=== PATIENT | male | born 1945 | race Caucasian/White ===

== ENCOUNTER 2024-08-14 14:29 | Inpatient (IN) | payer MEDICARE ==
[~2024-08-14] VITALS: Ht 188 cm; Wt 128.4 kg
[2024-08-15 20:05] VITALS: BP 133/66; PULSE 79; RESP 20; TEMP 98.5; O2SAT 94
[2024-08-15] MEDS ORDERED: CALCIUM CARBONATE 500 MG CHEWABLE TABLET CHEW PRN (21:00)
[2024-08-15] MEDS ORDERED: BISACODYL 10 MG RECTAL RECTAL SUPPOSITORY PR PRN (21:00)
[2024-08-15] MEDS ORDERED: LACTULOSE 20 GM/30 ML SOLUTION UDCUP PO PRN (21:15)
[2024-08-15 22:00] VITALS: O2SAT 94
[2024-08-15] MEDS: DOCUSATE SODIUM 100 MG CAPSULE PO SCH (22:27)
[2024-08-15] MEDS: TAMSULOSIN HCL 0.4 MG CAPSULE PO SCH (22:27)
[2024-08-15] MEDS: ETHYL ALCOHOL 62% ANTISEPTIC NASAL SANITIZER 0.6 ML AMPUL NASAL SCH (22:27)
[2024-08-15] MEDS: SENNOSIDES 8.6 MG TABLET PO SCH (22:27)
[2024-08-15] MEDS: BUDESONIDE/FORMOTEROL FUMARATE 160-4.5 MCG/PUFF 10.2 GM INHALER IH SCH (22:28)
[2024-08-15] MEDS: VENLAFAXINE HCL 150 MG ER CAPSULE PO SCH (22:30)
[2024-08-15] MEDS: ROSUVASTATIN CALCIUM 10 MG TABLET PO SCH (22:30)
[2024-08-15] MEDS: DOXEPIN HCL 10 MG CAPSULE PO SCH (22:30)
[2024-08-15] MEDS: OxyCODONE HCL 10 MG IR TABLET PO PRN (22:38)
[2024-08-15] MEDS: ACETAMINOPHEN 500 MG TABLET PO SCH (22:40)
[2024-08-16 08:00] VITALS: BP 139/70; PULSE 60; RESP 19; TEMP 98.2; O2SAT 95
[2024-08-16] MEDS: LOSARTAN POTASSIUM 50 MG TABLET PO SCH (08:38)
[2024-08-16] MEDS: FUROSEMIDE 40 MG TABLET PO SCH (08:38)
[2024-08-16] MEDS: OMEPRAZOLE 20 MG CAPSULE PO SCH (08:38)
[2024-08-16] MEDS: FINASTERIDE 5 MG TABLET PO SCH (08:38)
[2024-08-16] MEDS: MONTELUKAST SODIUM 10 MG TABLET PO SCH (08:38)
[2024-08-16] MEDS: METOPROLOL SUCCINATE 25 MG ER TABLET PO SCH (08:38)
[2024-08-16] MEDS: POLYETHYLENE GLYCOL 3350 17 GM PACKET PO SCH (08:39)
[2024-08-16 10:04] LABS: BASOPHILS % (AUTO) 0.4 % (0.0-2.0); EOSINOPHILS % (AUTO) 3.1 % (1.0-6.0); HEMATOCRIT 31.8 % (41-53); HEMOGLOBIN 10.3 g/dL (13.5-17.5); LYMPHOCYTES # (AUTO) 0.9 K/uL (1.0-4.8); LYMPHOCYTES % (AUTO) 10.6 % (22.0-44.0); MEAN CORPUSCULAR HEMOGLOBIN 28.9 pg (26.0-34.0); MEAN CORPUSCULAR HGB CONC 32.4 G/dL (31.0-37.0); MEAN CORPUSCULAR VOLUME 89 fL (80-100); MONOCYTES # (AUTO) 0.5 K/uL (0.1-1.0); MONOCYTES % (AUTO) 6.6 % (2.0-9.0); NEUTROPHILS # (AUTO) 6.5 K/uL (1.8-7.7); NEUTROPHILS % (AUTO) 79.3 % (40.0-70.0); PLATELET COUNT (AUTO) 182 K/uL (150-450); RED BLOOD CELL COUNT(AUTO) 3.57 MIL/uL (4.50-5.90); WHITE BLOOD COUNT (AUTO) 8.2 K/uL (4.5-11.0)
[2024-08-16 10:23] LABS: ALANINE AMINOTRANSFERASE 38 U/L (12-78); ALBUMIN 2.1 g/dL (3.4-5.0); ALKALINE PHOSPHATASE 92 U/L (46-116); ANION GAP 10 mmol/L (8-16); ASPARTATE AMINOTRANSFERASE 38 U/L (15-37); BILIRUBIN,TOTAL 1.3 mg/dL (0.1-1.0); CALCIUM, TOTAL 8.1 mg/dL (8.8-10.5); CARBON DIOXIDE 24 mmol/L (22-29); CHLORIDE 105 mmol/L (98-107); CREATININE 0.85 mg/dL (0.60-1.30); GLOMERULAR FILTR. RATE CALC > 60 mL/min (>60); GLUCOSE,RANDOM 164 mg/dL (70-110); POTASSIUM 3.8 mmol/L (3.5-5.1); SODIUM SERUM 139 mmol/L (136-145); TOTAL PROTEIN, SERUM 5.6 g/dL (6.4-8.2); UREA NITROGEN, BLOOD 19 mg/dL (7-18)
[2024-08-16] MEDS: OxyCODONE HCL 5 MG IR TABLET PO PRN (13:11)
[2024-08-16 14:40] LABS: APPEARANCE,URINE CLEAR (CLEAR); BILIRUBIN,URINE NEGATIVE (NEGATIVE); COLOR,URINE YELLOW (YELLOW); GLUCOSE, URINE (UA) NEGATIVE (NEGATIVE); KETONES,URINE NEGATIVE (NEGATIVE); LEUKOCYTE ESTERASE ,URINE NEGATIVE (NEGATIVE); NITRATE,URINE NEGATIVE (NEGATIVE); OCCULT BLOOD,URINE NEGATIVE (NEGATIVE); PROTEIN,URINE TRACE mg/dL (NEGATIVE); SPECIFIC GRAVITIY, URINE 1.024 (1.003-1.030)
[2024-08-16 19:40] VITALS: BP 127/57; PULSE 70; RESP 18; TEMP 98.3; O2SAT 93
[2024-08-16] MEDS: ENOXAPARIN SODIUM 80 MG/0.8 ML PF SYRINGE SQ SCH (19:50)
[2024-08-16 20:40] VITALS: O2SAT 93
[2024-08-16 20:41] VITALS: O2SAT 94
[2024-08-17 08:30] VITALS: BP 135/71; PULSE 83; RESP 18; TEMP 98.1; O2SAT 95
[2024-08-17 11:05] VITALS: O2SAT 95
[2024-08-17 20:00] VITALS: BP 103/56; PULSE 90; RESP 19; TEMP 97.3; O2SAT 95
[2024-08-17] MEDS: MELATONIN 5 MG TABLET PO PRN (20:19)
[2024-08-17 21:00] VITALS: O2SAT 95
[2024-08-17 21:12] VITALS: BP 112/68; RESP 18; O2SAT 95
[2024-08-18 08:15] VITALS: BP 111/58; PULSE 72; RESP 19; TEMP 97.8; O2SAT 96
[2024-08-18 09:01] VITALS: BP 132/57; PULSE 72; RESP 19; O2SAT 95
[2024-08-18 20:00] VITALS: BP 105/53; PULSE 74; RESP 20; TEMP 98.5; O2SAT 95
[2024-08-18 21:00] VITALS: O2SAT 95
[2024-08-19 08:00] VITALS: BP 127/59; PULSE 71; RESP 18; TEMP 97.6; O2SAT 95
[2024-08-19 09:36] LABS: BASOPHILS % (AUTO) 0.7 % (0.0-2.0); EOSINOPHILS % (AUTO) 3.8 % (1.0-6.0); HEMATOCRIT 34.3 % (41-53); HEMOGLOBIN 11.1 g/dL (13.5-17.5); LYMPHOCYTES # (AUTO) 1.1 K/uL (1.0-4.8); LYMPHOCYTES % (AUTO) 14.8 % (22.0-44.0); MEAN CORPUSCULAR HEMOGLOBIN 28.8 pg (26.0-34.0); MEAN CORPUSCULAR HGB CONC 32.3 G/dL (31.0-37.0); MEAN CORPUSCULAR VOLUME 89 fL (80-100); MONOCYTES # (AUTO) 0.6 K/uL (0.1-1.0); MONOCYTES % (AUTO) 7.7 % (2.0-9.0); NEUTROPHILS # (AUTO) 5.5 K/uL (1.8-7.7); PLATELET COUNT (AUTO) 277 K/uL (150-450); RED BLOOD CELL COUNT(AUTO) 3.84 MIL/uL (4.50-5.90); WHITE BLOOD COUNT (AUTO) 7.5 K/uL (4.5-11.0)
[2024-08-19 19:59] VITALS: BP 115/54; PULSE 71; RESP 18; TEMP 97.8; O2SAT 95
[2024-08-19 21:12] VITALS: O2SAT 95
[2024-08-19 21:19] VITALS: O2SAT 95
[2024-08-20 08:50] VITALS: BP 136/66; PULSE 76; RESP 19; TEMP 98; O2SAT 95
[2024-08-20] MEDS: APIXABAN 5 MG TABLET PO SCH (08:54)
[2024-08-20 20:23] VITALS: BP 109/55; PULSE 68; RESP 20; TEMP 98.9; O2SAT 97
[2024-08-20 20:37] VITALS: O2SAT 97
[2024-08-20 21:38] VITALS: O2SAT 97
[2024-08-21] MEDS ORDERED: VENL-68 PO (05:14)
[2024-08-21] MEDS ORDERED: OXYC10TA92 PO (05:14)
[2024-08-21] MEDS ORDERED: SENN-376 PO (05:14)
[2024-08-21] MEDS ORDERED: LOSA-382 PO (05:14)
[2024-08-21] MEDS ORDERED: APIX5TAB PO (05:14)
[2024-08-21] MEDS ORDERED: BUDE10.26 IH (05:14)
[2024-08-21] MEDS ORDERED: DOXE10CA42 PO (05:14)
[2024-08-21] MEDS ORDERED: ROPI2TAB26 PO (05:14)
[2024-08-21] MEDS ORDERED: TAMS0.4C94 PO (05:14)
[2024-08-21] MEDS ORDERED: METO25XL PO (05:14)
[2024-08-21] MEDS ORDERED: ROSU10TA72 PO (05:14)
[2024-08-21] MEDS ORDERED: ACET-3385 PO (05:14)
[2024-08-21] MEDS ORDERED: MONT-35 PO (05:14)
[2024-08-21] MEDS ORDERED: FURO40TA6 PO (05:14)
[2024-08-21] MEDS ORDERED: DOCU-385 PO (05:14)
[2024-08-21] MEDS ORDERED: FINA-27 PO (05:14)
[2024-08-21] MEDS ORDERED: OMEP20 PO (05:14)
[2024-08-21 08:00] VITALS: BP 135/57; PULSE 64; RESP 19; TEMP 98.1; O2SAT 95
[2024-08-21 19:48] VITALS: BP 117/56; PULSE 75; RESP 19; TEMP 98.5; O2SAT 98
[2024-08-21 20:13] VITALS: O2SAT 98
[2024-08-22 08:00] VITALS: BP 132/59; PULSE 64; RESP 19; TEMP 98.4; O2SAT 96
[2024-08-22 20:02] VITALS: BP 123/52; PULSE 71; RESP 19; TEMP 98.2; O2SAT 98
[2024-08-22 20:03] VITALS: O2SAT 98
[2024-08-22 21:52] VITALS: O2SAT 98
[2024-08-23 07:55] VITALS: BP 120/60; PULSE 67; RESP 18; TEMP 98.2; O2SAT 98
[2024-08-23 08:43] VITALS: O2SAT 98
[2024-08-23 09:39] LABS: BASOPHILS % (AUTO) 0.9 % (0.0-2.0); EOSINOPHILS % (AUTO) 5.2 % (1.0-6.0); HEMATOCRIT 34.2 % (41-53); LYMPHOCYTES # (AUTO) 1.3 K/uL (1.0-4.8); LYMPHOCYTES % (AUTO) 16.8 % (22.0-44.0); MEAN CORPUSCULAR HGB CONC 32.3 G/dL (31.0-37.0); MEAN CORPUSCULAR VOLUME 90 fL (80-100); MONOCYTES # (AUTO) 0.6 K/uL (0.1-1.0); MONOCYTES % (AUTO) 7.6 % (2.0-9.0); NEUTROPHILS # (AUTO) 5.4 K/uL (1.8-7.7); NEUTROPHILS % (AUTO) 69.5 % (40.0-70.0); PLATELET COUNT (AUTO) 350 K/uL (150-450); RED CELL DISTRIBUTION WIDTH 16.1 % (11.5-14.5); WHITE BLOOD COUNT (AUTO) 7.7 K/uL (4.5-11.0)
[2024-08-23 10:13] LABS: ANION GAP 10 mmol/L (8-16); CALCIUM, TOTAL 8.7 mg/dL (8.8-10.5); CARBON DIOXIDE 30 mmol/L (22-29); CHLORIDE 100 mmol/L (98-107); CREATININE 1.09 mg/dL (0.60-1.30); GLOMERULAR FILTR. RATE CALC > 60 mL/min (>60); GLUCOSE,RANDOM 135 mg/dL (70-110); SODIUM SERUM 140 mmol/L (136-145); UREA NITROGEN, BLOOD 13 mg/dL (7-18)
[2024-08-23] MEDS ORDERED: OMEP20 PO (11:02)
[2024-08-23] MEDS ORDERED: FINA-27 PO (11:02)
[2024-08-23] MEDS ORDERED: APIX5TAB PO (11:02)
[2024-08-23] MEDS ORDERED: ACET-3385 PO (11:02)
[2024-08-23] MEDS ORDERED: TAMS0.4C94 PO (11:02)
[2024-08-23] MEDS ORDERED: BUDE10.26 IH (11:02)
[2024-08-23] MEDS ORDERED: METO25XL PO (11:02)
[2024-08-23] MEDS ORDERED: DOXE10CA42 PO (11:02)
[2024-08-23] MEDS ORDERED: OXYC10TA48 PO (11:02)
[2024-08-23] MEDS ORDERED: FURO40TA5 PO (11:02)
[2024-08-23] MEDS ORDERED: ROPI2TAB26 PO (11:02)
[2024-08-23] MEDS ORDERED: DOCU-385 PO (11:02)
[2024-08-23] MEDS ORDERED: ROSU10TA72 PO (11:02)
[2024-08-23] MEDS ORDERED: MONT-35 PO (11:02)
[2024-08-23] MEDS ORDERED: VENL-68 PO (11:02)
[2024-08-23] MEDS ORDERED: SENN-374 PO (11:02)
[2024-08-23] MEDS ORDERED: LOSA-382 PO (11:02)
[2024-08-23 19:59] VITALS: BP 125/51; PULSE 61; RESP 18; TEMP 98.5; O2SAT 96
[2024-08-24 00:15] VITALS: O2SAT 96
[2024-08-24 08:13] VITALS: BP 126/67; PULSE 68; RESP 18; TEMP 98.6; O2SAT 98
[2024-08-24 09:09] VITALS: O2SAT 98
== END 2024-08-24 13:30 | disposition home health service (06) | DRG 552 ==
LOC: 2WR 08-15 20:48
PROVIDERS: ADMIT Physical Medicine & Rehabilitation; ATTEND Physical Medicine & Rehabilitation
DX: M48.061 Spinal stenosis, lumbar region without neurogenic claudication (principal); G82.20 Paraplegia, unspecified; E46 Unspecified protein-calorie malnutrition; I82.4Z1 Acute embolism and thrombosis of unspecified deep veins of right distal lower extremity; D62 Acute posthemorrhagic anemia; M54.50 Low back pain, unspecified; N40.1 Benign prostatic hyperplasia with lower urinary tract symptoms; M48.07 Spinal stenosis, lumbosacral region; R33.8 Other retention of urine; E66.01 Morbid (severe) obesity due to excess calories; J45.909 Unspecified asthma, uncomplicated; I10 Essential (primary) hypertension; F90.9 Attention-deficit hyperactivity disorder, unspecified type; G89.29 Other chronic pain; R26.9 Unspecified abnormalities of gait and mobility; F41.9 Anxiety disorder, unspecified; R74.8 Abnormal levels of other serum enzymes; G47.33 Obstructive sleep apnea (adult) (pediatric); G25.81 Restless legs syndrome; F32.A Depression, unspecified; I48.0 Paroxysmal atrial fibrillation; K59.00 Constipation, unspecified; I25.10 Atherosclerotic heart disease of native coronary artery without angina pectoris; Z74.09 Other reduced mobility; Z88.1 Allergy status to other antibiotic agents; Z95.818 Presence of other cardiac implants and grafts; Z68.36 Body mass index [BMI] 36.0-36.9, adult; Z88.8 Allergy status to other drugs, medicaments and biological substances
CPT/HCPCS: 80048; 80053; 81003; 85025; 87081; 93970; 97110; 97112; 97116; 97163; 97167; 97530; 97535; 99366; J1650